=== PATIENT | male | born 2000 | race Caucasian/White ===

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

== ENCOUNTER → 2018-07-10 | Outpatient (CLI) | payer OTHER | LOC: COL.RAD 07-05 14:15 | DX: R19.09 Other intra-abdominal and pelvic swelling, mass and lump (principal) ==

== ENCOUNTER 2020-10-05 18:55 | Emergency (ER) | payer OTHER ==
[~2020-10-05] VITALS: Ht 190.5 cm; Wt 86.4 kg
[2020-10-05 19:33] VITALS: BP 145/91; PULSE 88; TEMP 98.3
== END 2020-10-05 19:35 | disposition home or self-care (01) ==
LOC: COL.ER 18:55
DX: S61.012A Laceration without foreign body of left thumb without damage to nail, initial encounter (principal); Z23 Encounter for immunization; W26.0XXA Contact with knife, initial encounter; Y93.89 Activity, other specified; Y92.009 Unspecified place in unspecified non-institutional (private) residence as the place of occurrence of the external cause